=== PATIENT | male | born 1985 | race Two or more races ===

== ENCOUNTER 2017-08-20 21:12 | Inpatient (IN) | payer OTHER ==
[~2017-08-20] VITALS: Ht 157.5 cm; Wt 79.3 kg
[2017-08-21 01:22] LABS: Basophils # (auto) 0 uL; Basophils % (auto) 0.2 % (0.0-2.0); Eosinophils # (auto) 0 uL; Eosinophils % (auto) 0.1 % (0.0-7.0); Hematocrit 41.5 % (41.0-53.0); Hemoglobin 14.1 g/dL (13.5-17.5); Lymphocytes # (auto) 1.5 uL; Lymphocytes % (auto) 8.7 % (10.0-50.0); Mean Corpuscular Hemoglobin 29.5 pg (28.0-32.0); Mean Corpuscular Hgb Conc. 33.8 g/dL (32.0-36.0); Monocytes # (auto) 0.5 uL; Neutrophils # (auto) 14.8 uL; Platelet Count (auto) 271 10^3/uL (140-450); Red Blood Cells 4.77 10^6/uL (4.5-5.90); Red Cell Distribution Width 12.4 % (11.8-14.3); White Blood Cell 16.9 10^3/uL (4.4-10.8)
[2017-08-21 01:41] LABS: Albumin 4.3 g/dL (3.4-5.0); Calcium 8.9 mg/dL (8.5-10.1)
[2017-08-21 01:50] LABS: Bilirubin, Total 0.3 mg/dL (0.2-1.0); Total Protein 8.1 g/dL (6.4-8.2)
[2017-08-21 02:57] LABS: Urine Bacteria FEW /hpf (None Seen); Urine Blood Negative /uL (Negative); Urine Mucus FEW (None Seen); Urine Specific Gravity 1.027 (1.001-1.035); Urine WBC <1 /hpf (0 - 3)
[2017-08-21 03:10] LABS: Alcohol, Urine < 3.0 mg/dL (0-5); Amphetamine Screen, Urine NEGATIVE (NEGATIVE); Barbiturate Scree,Urine NEGATIVE (NEGATIVE); Benzodiazephine Screen, Urine NEGATIVE (NEGATIVE); Cannabinoid Screen, Urine NEGATIVE (NEGATIVE); Cocaine Screen, Urine NEGATIVE (NEGATIVE); Opiate Scree,Urine NEGATIVE (NEGATIVE); Phencyclidine Screen, Urine NEGATIVE (NEGATIVE)
[2017-08-21] MEDS ORDERED: ONDANSETRON HCL 4 MG/2 ML VIAL IV ONE (03:45)
[2017-08-21] MEDS ORDERED: NALBUPHINE HCL 10 MG/1ml INJECTION IV ONE (03:45)
[2017-08-21] MEDS ORDERED: SODIUM CHLORIDE 0.9% 1,000 ML IVB ONE (03:54)
[2017-08-21 04:30] LABS: INR 0.97 (0.9-1.15); Partial Thromboplastin Time 25.7 sec (23.78-33.04); Prothrombin Time 10.4 sec (9.27-12.13)
[2017-08-21] MEDS ORDERED: metroNIDAZOLE 500MG/100ML 100 ML IV ONE (04:45)
[2017-08-21] MEDS ORDERED: PIPERACILLIN-TAZOB 3.375GM 100 ML IV ONE (04:45)
[2017-08-21] MEDS ORDERED: MEPERIDINE HCL (25 MG/ML) 1ML VIAL IM PRN (05:45)
[2017-08-21] MEDS ORDERED: ONDANSETRON HCL 4 MG/2 ML VIAL IV PRN (05:45)
[2017-08-21] MEDS: cefTRIAXone 1GM/10ml IVPUSH 10 ML IV SCH (06:00)
[2017-08-21] MEDS: MEPERIDINE HCL (25 MG/ML) 1ML VIAL IV PRN ×3 (08:01→22:42)
[2017-08-21 09:00] VITALS: BP 138/85
[2017-08-21] MEDS ORDERED: SUCCINYLCHOLINE CHLORIDE 20 MG/ML 10ML VIAL IV ONE (10:30)
[2017-08-21] MEDS ORDERED: DOXAPRAM HCL 20 MG/ML 20ML VIAL INJ IV ONE (10:30)
[2017-08-21] MEDS ORDERED: MEPERIDINE HCL (50 MG/ML) 1 ML VIAL ONE (10:40)
[2017-08-21] MEDS ORDERED: fentaNYL CITRATE 100 MCG/2 ML VL ONE (10:40)
[2017-08-21] MEDS ORDERED: MIDAZOLAM HCL 1MG/1ML-2 ML VIAL ONE (10:40)
[2017-08-21] MEDS ORDERED: ONDANSETRON HCL 4 MG/2 ML VIAL ONE (10:40)
[2017-08-21] MEDS ORDERED: PROPOFOL 10 MG/ML 20 ML IV ONE (10:40)
[2017-08-21] MEDS ORDERED: SODIUM CHLORIDE LOCK 10 ML ONE (10:40)
[2017-08-21] MEDS ORDERED: ROCURONIUM 10MG/ML 10ML VIAL IV ONE (10:40)
[2017-08-21] MEDS ORDERED: LIDOCAINE W/ EPINEPHRINE 1% 20ML VIAL ONE (10:55)
[2017-08-21] MEDS ORDERED: BUPIVACAINE 0.25% INJ 50ML VIAL ONE (10:55)
[2017-08-21] MEDS ORDERED: MORPHINE SULF INJ 2 MG/ML SYRINGE 1ML IV PRN (11:15)
[2017-08-21] MEDS ORDERED: METOCLOPRAMIDE HCL 5MG/ml INJ 2ml VIAL IV ONE (11:15)
[2017-08-21] MEDS ORDERED: KETOROLAC TROMETH 30 MG/ML 1ML VIAL IV ONE (11:15)
[2017-08-21] MEDS ORDERED: ceFAZolin 1GM/100ML 50 ML IV ONE (12:02)
[2017-08-21] MEDS ORDERED: NEOSTIGMINE 1 MG/ML INJ (10mg/10ML VIAL) ONE (12:36)
[2017-08-21] MEDS ORDERED: KETOROLAC TROMETH 60MG/2ML VIAL IM ONE (12:36)
[2017-08-21] MEDS ORDERED: GLYCOPYRROLATE 0.2 MG/ML 1ML VIAL ONE (12:36)
[2017-08-21] MEDS: metroNIDAZOLE 500MG/100ML 100 ML IV SCH ×2 (14:00→21:28)
[2017-08-21] MEDS ORDERED: fentaNYL CITRATE 100 MCG/2 ML VL IV PRN (14:30)
[2017-08-21] MEDS: HYDROcodone-ACET 5/325MG TAB PO PRN ×2 (16:20→20:45)
[2017-08-21 17:00] VITALS: BP 99/55
[2017-08-21 18:01] VITALS: BP 109/70
[2017-08-21 22:00] VITALS: BP 96/53
[2017-08-22] MEDS: MEPERIDINE HCL (25 MG/ML) 1ML VIAL IV PRN ×4 (03:29→19:17)
[2017-08-22] MEDS: cefTRIAXone 1GM/10ml IVPUSH 10 ML IV SCH (05:38)
[2017-08-22] MEDS: metroNIDAZOLE 500MG/100ML 100 ML IV SCH ×3 (05:41→21:35)
[2017-08-22 05:50] VITALS: BP 94/52
[2017-08-22 06:14] LABS: Basophils # (auto) 0 uL; Basophils % (auto) 0.2 % (0.0-2.0); Eosinophils # (auto) 0.1 uL; Eosinophils % (auto) 0.9 % (0.0-7.0); Hematocrit 38.3 % (41.0-53.0); Hemoglobin 13.1 g/dL (13.5-17.5); Lymphocytes % (auto) 15.9 % (10.0-50.0); Mean Corpuscular Hemoglobin 30.4 pg (28.0-32.0); Mean Corpuscular Hgb Conc. 34.3 g/dL (32.0-36.0); Mean Corpuscular Volume 88.5 fL (80.0-100.0); Monocytes # (auto) 1.3 uL; Neutrophils # (auto) 9.2 uL; Platelet Count (auto) 204 10^3/uL (140-450); Red Blood Cells 4.32 10^6/uL (4.5-5.90); Red Cell Distribution Width 12.1 % (11.8-14.3); White Blood Cell 12.6 10^3/uL (4.4-10.8)
[2017-08-22 06:33] LABS: Albumin 3.2 g/dL (3.4-5.0); BUN/Creatinine Ratio 13.7; Bilirubin, Total 0.8 mg/dL (0.2-1.0); Calcium 7.9 mg/dL (8.5-10.1); Potassium 3.7 mmol/L (3.5-5.1); Total Protein 6.4 g/dL (6.4-8.2)
[2017-08-22 09:00] VITALS: BP 103/63
[2017-08-22 12:33] VITALS: BP 106/69
[2017-08-22] MEDS: HYDROcodone-ACET 5/325MG TAB PO PRN (16:38)
[2017-08-22 17:00] VITALS: BP 109/56
[2017-08-22] MEDS: ACETAMINOPHEN 500 MG TAB PO PRN (21:35)
[2017-08-22 22:14] VITALS: BP 103/55
[2017-08-23 04:57] VITALS: BP 101/69
[2017-08-23] MEDS: metroNIDAZOLE 500MG/100ML 100 ML IV SCH ×3 (06:15→21:32)
[2017-08-23] MEDS: cefTRIAXone 1GM/10ml IVPUSH 10 ML IV SCH (06:15)
[2017-08-23] MEDS: ACETAMINOPHEN 500 MG TAB PO PRN ×3 (06:38→23:50)
[2017-08-23 06:40] LABS: Basophils # (auto) 0 uL; Basophils % (auto) 0.2 % (0.0-2.0); Eosinophils # (auto) 0.2 uL; Eosinophils % (auto) 1.9 % (0.0-7.0); Hematocrit 37.3 % (41.0-53.0); Hemoglobin 12.8 g/dL (13.5-17.5); Lymphocytes # (auto) 1.5 uL; Mean Corpuscular Hgb Conc. 34.3 g/dL (32.0-36.0); Mean Corpuscular Volume 87.5 fL (80.0-100.0); Monocytes # (auto) 0.8 uL; Monocytes % (auto) 10.3 % (0.0-12.0); Neutrophils # (auto) 5.3 uL; Neutrophils % (auto) 68.6 % (37.0-80.0); Platelet Count (auto) 217 10^3/uL (140-450); Red Blood Cells 4.26 10^6/uL (4.5-5.90); Red Cell Distribution Width 12.4 % (11.8-14.3); White Blood Cell 7.8 10^3/uL (4.4-10.8)
[2017-08-23 07:07] LABS: Potassium 3.5 mmol/L (3.5-5.1)
[2017-08-23 07:12] LABS: BUN/Creatinine Ratio 13.9; Calcium 8.2 mg/dL (8.5-10.1)
[2017-08-23 09:00] VITALS: BP 100/66
[2017-08-23 12:15] VITALS: BP 95/64
[2017-08-23 17:25] VITALS: BP 107/68
[2017-08-23 21:54] VITALS: BP 101/58
[2017-08-24 04:51] VITALS: BP 105/64
[2017-08-24] MEDS: metroNIDAZOLE 500MG/100ML 100 ML IV SCH ×2 (05:35→14:37)
[2017-08-24] MEDS: cefTRIAXone 1GM/10ml IVPUSH 10 ML IV SCH (05:38)
[2017-08-24 06:37] LABS: Basophils # (auto) 0 uL; Eosinophils # (auto) 0.3 uL; Red Cell Distribution Width 12.1 % (11.8-14.3); White Blood Cell 8.6 10^3/uL (4.4-10.8)
[2017-08-24 06:42] LABS: BUN/Creatinine Ratio 10.7; Calcium 8.1 mg/dL (8.5-10.1); Potassium 3.6 mmol/L (3.5-5.1)
[2017-08-24 06:49] LABS: Basophils % (auto) 0.5 % (0.0-2.0); Hematocrit 37.6 % (41.0-53.0); Lymphocytes # (auto) 2.7 uL; Mean Corpuscular Hemoglobin 30.3 pg (28.0-32.0); Mean Corpuscular Hgb Conc. 34.5 g/dL (32.0-36.0); Mean Corpuscular Volume 87.8 fL (80.0-100.0); Monocytes # (auto) 0.8 uL; Monocytes % (auto) 9.1 % (0.0-12.0); Neutrophils # (auto) 4.8 uL; Neutrophils % (auto) 55.4 % (37.0-80.0); Platelet Count (auto) 264 10^3/uL (140-450); Red Blood Cells 4.29 10^6/uL (4.5-5.90)
[2017-08-24 09:20] VITALS: BP 99/62
[2017-08-24 13:00] VITALS: BP 101/64
== END 2017-08-24 19:25 | disposition home or self-care (01) | DRG 710 ==
LOC: ER 21:12 → TELE 21:13 → TELE-EAST 08-21 08:33 → EAST 08-22 20:02
PROVIDERS: ADMIT Nurse Practitioner Family; ATTEND Internal Medicine
PROC: 0DNW4ZZ Release Peritoneum, Percutaneous Endoscopic Approach (ICD-10-PCS; 2017-08-21)
PROC: 0DTJ4ZZ Resection of Appendix, Percutaneous Endoscopic Approach (ICD-10-PCS; principal; 2017-08-21 12:05)
DX: A41.9 Sepsis, unspecified organism (principal); K35.80 Unspecified acute appendicitis; K59.00 Constipation, unspecified; Z83.3 Family history of diabetes mellitus; R33.9 Retention of urine, unspecified
CPT/HCPCS: 36415; 74018; 74176; 80048; 80053; 80307; 81001; 82150; 83690; 83735; 85025; 85610; 85730; 86850; 86900; 86901; 96365; 96367; 96375; J0330; J0690; J1885; J2250; J2405; J2543; J2704; J3490